=== PATIENT | female | born 1950 | race Caucasian/White ===

== ENCOUNTER 2017-05-21 06:03 | Inpatient (IN) | payer OTHER ==
[2017-05-06 08:53] LABS: HEMATOCRIT 34.6 % (37.0-47.0); MCH 29.9 pg (26.0-34.0); MCHC 34.6 g/dL (28.0-37.0); MCV 86.4 fL (80.0-100.0); RBC 4.01 mil/uL (4.20-5.00); RDW 13.6 % (10.5-14.5); WBC 5.7 thou/uL (4.0-11.0)
[2017-05-06 08:59] LABS: URINE BILIRUBIN NEGATIVE (Negative); URINE BLOOD NEGATIVE (Negative); URINE COLOR YELLOW; URINE GLUCOSE-RANDOM* NEGATIVE (Negative); URINE KETONES NEGATIVE (Negative); URINE LEUKOCYTES-REFLEX NEGATIVE (Negative); URINE PROTEIN (DIPSTICK) NEGATIVE (Negative); URINE UROBILINOGEN 0.2 E.U./dl (0.2-1.0)
[2017-05-06 09:01] LABS: ALBUMIN 4.3 g/dL (3.4-5.0); CALCIUM 9.7 mg/dL (8.5-10.1); POTASSIUM 3.2 mmol/L (3.5-5.1)
[2017-05-06 09:08] LABS: PROTIME 10.4 Seconds (9.3-11.4)
[~2017-05-21] VITALS: Ht 162.6 cm; Wt 75.3 kg
--- NOTE | ~2017-05-21 | EKG ---
[address] [address] ELECTROCARDIOGRAM REPORT Name: ELZADENYS Room #: PRE IN [facility]#: [id number] Admission: Attend Phys: Van Lincoln MD Discharge: Date of : 54 Report #: [id number] THIS REPORT FOR: //name// [facility] Test Date: 2017-05-06 Test Time: 08:29:07 Pat Name: DENYS BERTRAND Department: Room: Gender: F Safety Technician: SAUMYA HENRY : 1950 Requested By: Van Lincoln Order Number: [id number] MD: Harsha Vo Measurements Intervals [place] Rate: 69 P: 80 [place]: 159 QRS: 91 QRSD: 93 T: 53 QT: 410 QTc: 440 Interpretive Statements Sinus rhythm Right axis deviation No previous ECG available for comparison Electronically Signed On 05-06-2017 8:50:05 CDT by Harsha Vo [email or web address] <ELECTRONICALLY SIGNED> By: Harsha Vo MD, [facility] 05/06/17 0850 0829 0829 Harsha Vo MD, FACC /EPI
[~2017-05-21 06:03] MED LIST: AVAPRO300 MG PO; CHLORTHALIDONE25 MG PO; COLACE100 MG PO; DICLOFENAC SOD100 MG PO; DICLOFENAC SODI75 MG PO; FERROUS SULFATE PO; FISH OIL 1,001000 M2 PO; FLONASE 0.05%50 MCG NASAL; IRON325 PO; LEVOTHYROXIN0.137 M1 PO; NORCO 10-325 T1 EACH PO; NORVASC5 MG PO; STOOL SOFTENER50 MG PO; TRAMADOL 50 MG50 MG PO; VOLTAREN GEL 1100 G2 TOP; XARELTO10 MG PO; ZOCOR20 MG PO; ZOLOFT100 MG PO; ZOLOFT50 MG PO
[2017-05-21 10:48] VITALS: BP 132/75
[2017-05-21 15:10] VITALS: BP 121/74
[2017-05-21 15:30] VITALS: BP 107/69
[2017-05-21 16:00] VITALS: BP 108/88
[2017-05-21 17:00] VITALS: BP 127/73
[2017-05-21 20:00] VITALS: BP 121/69
[2017-05-22] VITALS: BP 116/63
[2017-05-22 04:00] VITALS: BP 124/52
[2017-05-22 05:02] LABS: HEMATOCRIT 29.2 % (37.0-47.0); MCH 29.9 pg (26.0-34.0); MCHC 34.3 g/dL (28.0-37.0); MCV 87.1 fL (80.0-100.0); RBC 3.36 mil/uL (4.20-5.00); RDW 13.8 % (10.5-14.5); WBC 9.3 thou/uL (4.0-11.0)
[2017-05-22 07:55] VITALS: BP 117/63
[2017-05-22] MEDS ORDERED: HYDROCODONE-APA1 TA1 PO (13:04)
[2017-05-22] MEDS ORDERED: ASPIRIN325 PO (13:04)
[2017-05-22 15:40] VITALS: BP 98/64
[2017-05-22 15:46] VITALS: BP 117/63
[2017-05-22 19:09] VITALS: BP 118/55
[2017-05-23 03:45] VITALS: BP 123/52
[2017-05-23 05:31] LABS: HEMATOCRIT 26.4 % (37.0-47.0); HEMOGLOBIN 9.2 gm/dL (12.0-15.0); MCHC 34.9 g/dL (28.0-37.0); RBC 3.07 mil/uL (4.20-5.00); RDW 13.4 % (10.5-14.5); WBC 7.5 thou/uL (4.0-11.0)
[2017-05-23 07:20] VITALS: BP 87/49
[2017-05-23 12:10] VITALS: BP 94/58
[2017-05-23] MEDS ORDERED: CHLORTHALIDONE25 MG PO (12:49)
[2017-05-23 13:22] LABS: CALCIUM 8.2 mg/dL (8.5-10.1)
[2017-05-23 13:25] LABS: POTASSIUM 2.7 mmol/L (3.5-5.1)
[2017-05-23 14:49] VITALS: BP 95/52
[2017-05-23 19:55] VITALS: BP 118/61
[2017-05-24 03:46] LABS: HEMATOCRIT 25.4 % (37.0-47.0); HEMOGLOBIN 8.9 gm/dL (12.0-15.0); MCH 30.2 pg (26.0-34.0); MCHC 34.9 g/dL (28.0-37.0); MCV 86.6 fL (80.0-100.0); RBC 2.94 mil/uL (4.20-5.00); RDW 13.4 % (10.5-14.5); WBC 6.1 thou/uL (4.0-11.0)
[2017-05-24 03:53] VITALS: BP 95/46
[2017-05-24 07:21] VITALS: BP 109/63
[2017-05-24 16:00] VITALS: BP 98/61
[2017-05-24] MEDS ORDERED: POTASSIUM20 PO (20:18)
[2017-05-24 20:50] VITALS: BP 117/63
== END 2017-05-24 21:21 | disposition home or self-care (01) | DRG 470 ==
LOC: 5S 06:03 → TBA 06:03 → PRE 07:55 → 5S 14:16
PROVIDERS: Orthopaedic Surgery; Registered Nurse
PROC: 0SRB0JZ Replacement of Left Hip Joint with Synthetic Substitute, Open Approach (ICD-10-PCS; principal; 2017-05-21)
DX: M16.12 Unilateral primary osteoarthritis, left hip (principal); I10 Essential (primary) hypertension; E78.5 Hyperlipidemia, unspecified; E03.9 Hypothyroidism, unspecified; D64.9 Anemia, unspecified; E87.6 Hypokalemia; Z88.2 Allergy status to sulfonamides
CPT/HCPCS: 10785; 50010; 50101; 50382; 50414; 50455; 50612; 50855; 50939; 51412; 51771; 53000; 55388; 56521; 56525; 56527; 56530; 57095; 62110; 62900; 70005